=== PATIENT | male | born 1955 | race African-American/Black ===

== ENCOUNTER 2017-02-17 12:41 | Emergency (ER) | payer OTHER ==
[2017-02-17 12:33] LABS: URINE SOURCE CLEAN CATCH
[2017-02-17 12:38] LABS: URINE APPEARANCE CLEAR; URINE BILIRUBIN NEG (NEG); URINE BLOOD 2+ (NEG); URINE COLOR YELLOW; URINE GLUCOSE NEG (NEG); URINE KETONE NEG (NEG); URINE LEUKOCYTE ESTERASE 3+ (NEG); URINE NITRATE NEG (NEG); URINE PROTEIN NEG (NEG); URINE SPECIFIC GRAVITY 1.017 (1.003-1.035)
[2017-02-17 12:40] LABS: CULTURE INDICATED? YES; URINE BACTERIA AUWI NEG (NEGATIVE); URINE SQUAMOUS EPITHELIAL CELL NONE SEEN /[HPF]; UWBCS1 AUWI 200-300 (0-5)
[~2017-02-17 12:41] MED LIST: ALBUTEROL17 GM INH; ASPIRIN PO; CIPRO PO; DICLOFENAC PO; FLEXERIL PO; FLEXERIL10 MG PO; IBUPROFEN PO; KEFLEX500 MG PO; KETOPROFEN PO; NAPROXEN PO; NORCO 7.5/325 T1 TAB PO; PERCOCET5/325 PO; PRILOSEC PO; ROBITUSSIN A-C S5 ML PO; VICODIN 5/500 T1 TAB PO; VOLTAREN50 MG PO
[2017-02-19 21:05] LABS: CHLAMYDIA TRACH Detected (Not Detected); N GONOR Detected (Not Detected)
== END 2017-02-17 13:08 | disposition home or self-care (01) ==
LOC: CFTX 12:41
PROVIDERS: Physician Assistant
DX: N34.1 Nonspecific urethritis (principal); Z87.891 Personal history of nicotine dependence
CPT/HCPCS: 81003; 87086; 87491; 87591; 96372; 99283; J0696

== ENCOUNTER 2017-05-13 10:27 | Emergency (ER) | payer OTHER ==
[~2017-05-13] VITALS: Ht 182.9 cm; Wt 77.6 kg
== END 2017-05-13 12:18 | disposition home or self-care (01) ==
LOC: CED 10:27 → CFTX 10:27
DX: L02.611 Cutaneous abscess of right foot (principal); L03.031 Cellulitis of right toe; Z87.891 Personal history of nicotine dependence
CPT/HCPCS: 87070; 87077; 87186; 87205; 90715; 99283